=== PATIENT | female | born 1985 | race Caucasian/White ===

== ENCOUNTER → 2017-03-29 | Outpatient (CLI) | payer BC ==
--- NOTE | 2017-03-29 15:20 | US ---
EXAM DESCRIPTION: Breast,Left ultrasound CLINICAL HISTORY: 31 yearsFemaleLUMP. Above the nipple. Palpable by patient and the referring practitioner. Not palpable by patient last three days. COMPARISON: None. TECHNIQUE: Transcutaneous scanning of the 1200 clock position of the left retroareolar breast utilizing two-dimensional and Doppler modes. Scanning performed by the letterset press set up operator and Dr. Miranda. FINDINGS: Heterogeneous fibrofatty and fibroglandular tissues, 1200 clock position, retroareolar left breast. No discrete solid mass or cyst. No parenchymal edema. No large calcification. IMPRESSION: BI-RADS CATEGORY: 2 - BENIGN FINDINGS. FOLLOW UP: Routine digital bilateral mammographic screening, beginning at age 40. A negative breast ultrasound report should not delay tissue diagnosis in patients with significant clinical history or physical findings. The findings and the follow-up plan were reviewed in person with the patient after the examination. Written communication explaining the findings and follow-up, will be mailed to the patient and referring health care provider. According to the [employer], yearly mammograms are recommended starting at age 40 and continuing as long as a woman is in good health. Any breast change noted on a breast self-exam should be reported promptly to the patient's healthcare provider. Breast MRI is recommended for women with an approximately 20-25% or greater lifetime risk of breast cancer, including women with a strong family history of breast or ovarian cancer and women who have been treated for Hodgkin's disease. Extremely dense breast tissue limits the sensitivity of digital mammography. Electronically signed by: Keshav Miranda MD 03/29/2017 3:18 PM CDT Workstation: [id number]
== END ==
LOC: US 14:30
PROVIDERS: ATTEND Family Medicine
DX: N63 Unspecified lump in breast (principal)

== ENCOUNTER → 2018-02-15 | Outpatient (CLI) | payer BC | LOC: LAB.O 08:29 | PROVIDERS: ATTEND Nurse Practitioner Family | DX: Z32.01 Encounter for pregnancy test, result positive (principal) ==

== ENCOUNTER → 2018-08-12 | Outpatient (CLI) | payer BC | LOC: LAB.O 17:59 | PROVIDERS: ATTEND Nurse Practitioner Family | DX: J02.9 Acute pharyngitis, unspecified (principal) ==